=== PATIENT | female | born 1995 | race Caucasian/White ===

== ENCOUNTER 2020-07-08 10:05 | Outpatient (CLI) | payer OTHER ==
[2020-07-08 22:23] LABS: SARS-CoV-2 PCR by NAA Not Detected (NotDetected)
== END 2020-07-08 10:06 | disposition home or self-care (01) ==
LOC: LABBT 10:05
PROVIDERS: ATTEND Obstetrics & Gynecology
DX: Z01.812 Encounter for preprocedural laboratory examination (principal); Z20.822 Contact with and (suspected) exposure to COVID-19
CPT/HCPCS: 87635; U0003; U0005

== ENCOUNTER 2020-07-11 10:29 | Inpatient (IN) | payer OTHER ==
[2020-07-11] MEDS ORDERED: Promethazine HCl 25 MG/ML VIAL IM PRN ×2 (11:06→18:05)
[2020-07-11] MEDS ORDERED: Bicitra 30 ML UDCUP PO PRN (11:06)
[2020-07-11] MEDS ORDERED: Famotidine/PF 20 mg/2ml Vial SLOW IVP PRN (11:06)
[2020-07-11] MEDS ORDERED: Ondansetron PF 4 MG/2 ML Vial IVP PRN ×2 (11:06→18:05)
[2020-07-11] MEDS ORDERED: hydrALAZINE 20 MG/ML VIAL SLOW IVP PRN ×2 (11:06→12:05)
[2020-07-11 11:18] VITALS: BMI 34.7
[2020-07-11 11:24] LABS: Mean Corpuscular HGB CONC 34.2 g/dL (32.0-36.0); Mean Corpuscular Hemoglobin 30.2 pg (27.0-31.0); Mean Corpuscular Volume 88.4 fL (78.0-98.0); Mean Platelet Volume 9.8 fL (7.4-10.4); Platelet Count 146 thou/uL (130-400); RBC Distribution Width 13.2 % (11.5-14.5); White Blood Cell (WBC) Count 8.4 thou/uL (4.8-10.8)
[2020-07-11] MEDS ORDERED: Morphine PF 10 MG/10 ML VIAL ONE (11:36)
[2020-07-11] MEDS ORDERED: Dexamethasone 4 mg/ml Vial ONE ×2 (11:37→12:40)
[2020-07-11] MEDS ORDERED: Phenylephrine 40 MG/NS 250 ML 250 ML ONE (11:37)
[2020-07-11] MEDS ORDERED: Oxytocin 10 UNITS/ML VIAL ONE (11:37)
[2020-07-11] MEDS ORDERED: Ondansetron PF 4 MG/2 ML Vial ONE ×2 (11:37→14:32)
[2020-07-11] MEDS ORDERED: Ketorolac Tromethamine 30 MG/ML VIAL ONE (11:37)
[2020-07-11] MEDS ORDERED: PHENYLEPHRINE-NS 100 MCG/ML 10 ML SYRINGE ONE (11:37)
[2020-07-11] MEDS ORDERED: ePHEDrine 50 MG/ML VIAL ONE (11:37)
[2020-07-11] MEDS ORDERED: Famotidine/PF 20 mg/2ml Vial ONE (11:51)
[2020-07-11] MEDS ORDERED: Acetaminophen 325 MG TAB PO PRN (12:05)
[2020-07-11] MEDS ORDERED: diphenhydrAMINE 25 MG CAP PO PRN (12:05)
[2020-07-11] MEDS ORDERED: Lanolin Ointment 7 GM TUBE TOP PRN (12:05)
[2020-07-11] MEDS ORDERED: HYDROcodone/Acetaminophen 5/325 mg Tablet PO PRN ×2 (12:05)
[2020-07-11] MEDS ORDERED: Misoprostol 200 MCG TAB PR PRN (12:05)
[2020-07-11 12:07] LABS: HBSAg Index 0.17 S/CO (0-0.99); Hep B Surf Ag Non-Reactive S/CO (NonReactive)
[2020-07-11 12:08] LABS: Syphilis Antibody Nonreactive (Nonreactive); Syphilis Antibody Index 0.14 S/CO (<1.00 Non-Reactive)
[2020-07-11] MEDS ORDERED: Ibuprofen 800 MG TAB PO SCH (14:00)
[2020-07-11] MEDS ORDERED: Boostrix 0.5 ML (Tdap) VIAL IM ONE (14:00)
[2020-07-11] MEDS ORDERED: Naloxone HCl 0.4 mg/ml Vial IVP PRN ×2 (18:05)
[2020-07-11] MEDS ORDERED: Naloxone HCl 0.4 mg/ml Vial IV PRN (18:05)
[2020-07-11] MEDS ORDERED: Promethazine HCl 25 MG SUPP PR PRN (18:05)
[2020-07-11] MEDS ORDERED: Sodium Chloride 0.9% 10 ML ONE (18:08)
[2020-07-11] MEDS ORDERED: Communication Order-Pharmacy FS SCH (18:15)
[2020-07-11] MEDS: diphenhydrAMINE 50 MG/ML VIAL IVP PRN (19:47)
[2020-07-11] MEDS: Ketorolac Tromethamine 30 MG/ML VIAL IVP PRN (19:52)
[2020-07-12] MEDS: Docusate Calcium (SURFAK) 240 MG CAP PO SCH ×3 (03:04→23:04)
[2020-07-12 06:04] LABS: Hemoglobin 9.3 g/dL (12.0-16.0); Mean Corpuscular HGB CONC 34.1 g/dL (32.0-36.0); Mean Corpuscular Hemoglobin 30.7 pg (27.0-31.0); Mean Corpuscular Volume 90.2 fL (78.0-98.0); Mean Platelet Volume 10.1 fL (7.4-10.4); Platelet Count 171 thou/uL (130-400); RBC Distribution Width 13.2 % (11.5-14.5); Red Blood Cell (RBC) Count 3.03 mill/uL (4.20-5.40); White Blood Cell (WBC) Count 14.1 thou/uL (4.8-10.8)
[2020-07-12] MEDS: diphenhydrAMINE 50 MG/ML VIAL IVP PRN (06:06)
[2020-07-12] MEDS: Ketorolac Tromethamine 30 MG/ML VIAL IVP PRN (06:06)
[2020-07-12] MEDS ORDERED: Adacel (T-DAP) 0.5 ML SYRINGE IM ONE (09:00)
[2020-07-12] MEDS: Prenatal Vitamin 1 TAB PO SCH (09:22)
[2020-07-12] MEDS ORDERED: Sodium Chloride 0.9% 10 ML ONE (14:03)
[2020-07-12] MEDS: Ibuprofen 800 MG TAB PO SCH ×2 (14:05→21:03)
[2020-07-12] MEDS: Simethicone Chewable 80 MG TAB PO PRN ×2 (14:11→21:03)
[2020-07-12] MEDS ORDERED: FLU VACC QS2020-21(6MOS UP)/PF 60 MCG/0.5 ML SYRINGE IM ONE (14:15)
[2020-07-12] MEDS ORDERED: HYDROcodone/Acetaminophen 5/325 mg Tablet PO PRN (18:30)
[2020-07-12] MEDS: HYDROcodone/Acetaminophen 5/325 mg Tablet PO PRN ×2 (18:33→23:01)
[2020-07-13] MEDS: HYDROcodone/Acetaminophen 5/325 mg Tablet PO PRN ×3 (02:56→12:16)
[2020-07-13] MEDS: Ibuprofen 800 MG TAB PO SCH (06:05)
[2020-07-13] MEDS: Prenatal Vitamin 1 TAB PO SCH (07:39)
[2020-07-13] MEDS: Docusate Calcium (SURFAK) 240 MG CAP PO SCH (07:49)
[2020-07-13 08:11] VITALS: BP 105/68; TEMP 98.7
[2020-07-13] MEDS ORDERED: Sodium Chloride 0.9% 0 ML ONE (12:28)
== END 2020-07-13 13:30 | disposition home or self-care (01) | DRG 787 ==
LOC: L&D 10:29 → 3SW 15:45
PROVIDERS: ADMIT Obstetrics & Gynecology; ATTEND Obstetrics & Gynecology
PROC: 10D00Z1 Extraction of Products of Conception, Low, Open Approach (ICD-10-PCS; principal; 2020-07-11)
PROC: 3E0234Z Introduction of Serum, Toxoid and Vaccine into Muscle, Percutaneous Approach (ICD-10-PCS; 2020-07-11)
DX: O35.8XX0 Maternal care for other (suspected) fetal abnormality and damage, not applicable or unspecified (principal); K51.90 Ulcerative colitis, unspecified, without complications; Z20.822 Contact with and (suspected) exposure to COVID-19; O26.893 Other specified pregnancy related conditions, third trimester; O99.62 Diseases of the digestive system complicating childbirth; Z3A.37 37 weeks gestation of pregnancy; Z37.0 Single live birth; Z67.11 Type A blood, Rh negative; Z79.899 Other long term (current) drug therapy
CPT/HCPCS: 36415; 51702; 85027; 85461; 86780; 86850; 86870; 86900; 86901; 87340; 87635; 90384; 96372; J1100; J1200; J1885; J2270; J2405; J3490; Q0163; S0028; U0003; U0005

== ENCOUNTER 2021-03-01 13:02 | Emergency (ER) | payer OTHER ==
[2021-03-01] MEDS ORDERED: Acetaminophen 500 MG TAB ONE (13:12)
[2021-03-01] MEDS ORDERED: Ondansetron ODT 4 MG TAB ONE (13:13)
[2021-03-01 15:26] LABS: #Lymphocytes 0.5 thou/uL (1.20-3.40); #Monocytes 0.2 thou/uL (0.11-0.59); #Neutrophils 2.4 thou/uL (1.40-6.50); %Basophils 1.4 % (0.0-1.0); %Eosinophils 0.3 % (0.0-10.0); %Lymphocytes 17.2 % (21.0-51.0); %Monocytes 4.7 % (0.0-10.0); %Neutrophils 76.4 % (42.0-75.0); Hemoglobin 15.4 g/dL (12.0-16.0); Mean Corpuscular HGB CONC 33.6 g/dL (32.0-36.0); Mean Corpuscular Hemoglobin 29.2 pg (27.0-31.0); Mean Corpuscular Volume 86.9 fL (78.0-98.0); Mean Platelet Volume 10.6 fL (7.4-10.4); Platelet Count 122 thou/uL (130-400); RBC Distribution Width 12.5 % (11.5-14.5); Red Blood Cell (RBC) Count 5.27 mill/uL (4.20-5.40); White Blood Cell (WBC) Count 3.1 thou/uL (4.8-10.8)
[2021-03-01 15:53] LABS: ALT (SGPT) 231 U/L (8-55); AST (SGOT) 222 U/L (5-34); Albumin 3.9 g/dL (3.5-5.0); Alkaline Phosphatase 65 U/L (40-110); Anion Gap 13 mmol/L (10-20); BUN (Urea Nitrogen) 7 mg/dL (7.0-18.7); Bilirubin, Total 0.5 mg/dL (0.2-1.2); Calc. Creatinine Clearance 0 mL/min (70-130); Calcium 8.6 mg/dL (7.8-10.44); Carbon Dioxide 22 mmol/L (22-29); Chloride 108 mmol/L (98-107); Globulin 3.3 g/dL (2.4-3.5); Glucose 113 mg/dL (70-105); Potassium 3.5 mmol/L (3.5-5.1); Protein, Total 7.2 g/dL (6.0-8.3); Sodium 139 mmol/L (136-145)
[2021-03-01] MEDS ORDERED: Ketorolac Tromethamine 30 MG/ML VIAL ONE (16:00)
[2021-03-01 23:16] LABS: SARS-CoV-2 PCR by NAA DETECTED (NotDetected)
== END 2021-03-01 18:16 | disposition home or self-care (01) ==
LOC: ERS 13:02
DX: U07.1 COVID-19 (principal)
CPT/HCPCS: 71045; 80053; 85025; 93005; 96374; 96375; J1885; Q0162; U0003; U0005

== ENCOUNTER 2021-03-03 01:44 | Emergency (ER) | payer OTHER ==
[2021-03-03] MEDS ORDERED: Ondansetron ODT 4 MG TAB ONE (02:10)
[2021-03-03] MEDS ORDERED: Metoclopramide HCl 10 MG/2 ML VIAL ONE (03:07)
[2021-03-03] MEDS ORDERED: diphenhydrAMINE 50 MG/ML VIAL ONE (03:07)
[2021-03-03 03:14] LABS: ALT (SGPT) 235 U/L (8-55); AST (SGOT) 212 U/L (5-34); Albumin 3.5 g/dL (3.5-5.0); Alkaline Phosphatase 72 U/L (40-110); Anion Gap 13 mmol/L (10-20); BUN (Urea Nitrogen) 5 mg/dL (7.0-18.7); Bilirubin, Total 0.6 mg/dL (0.2-1.2); Calc. Creatinine Clearance 0 mL/min (70-130); Calcium 7.9 mg/dL (7.8-10.44); Carbon Dioxide 22 mmol/L (22-29); Chloride 108 mmol/L (98-107); Globulin 2.8 g/dL (2.4-3.5); Glucose 129 mg/dL (70-105); Potassium 3.4 mmol/L (3.5-5.1); Protein, Total 6.3 g/dL (6.0-8.3); Sodium 140 mmol/L (136-145)
[2021-03-03] MEDS ORDERED: Promethazine HCl 25 MG/ML VIAL ONE (04:58)
[2021-03-03] MEDS ORDERED: Ketorolac Tromethamine 30 MG/ML VIAL ONE (04:59)
== END 2021-03-03 06:54 | disposition home or self-care (01) ==
LOC: ERS 01:44
DX: U07.1 COVID-19 (principal); E86.0 Dehydration; R00.0 Tachycardia, unspecified; J45.909 Unspecified asthma, uncomplicated; Z79.899 Other long term (current) drug therapy
CPT/HCPCS: 36415; 80053; J1200; J1885; J2550; J2765; Q0162

== ENCOUNTER 2021-03-04 08:49 | Inpatient (IN) | payer OTHER ==
[2021-03-04 09:37] LABS: #Lymphocytes 0.6 thou/uL (1.20-3.40); #Monocytes 0.2 thou/uL (0.11-0.59); #Neutrophils 2.6 thou/uL (1.40-6.50); %Lymphocytes 17.3 % (21.0-51.0); %Monocytes 4.9 % (0.0-10.0); %Neutrophils 77.8 % (42.0-75.0); Hemoglobin 15.2 g/dL (12.0-16.0); Mean Corpuscular HGB CONC 33.7 g/dL (32.0-36.0); Mean Corpuscular Hemoglobin 28.9 pg (27.0-31.0); Mean Corpuscular Volume 85.7 fL (78.0-98.0); Mean Platelet Volume 9.2 fL (7.4-10.4); Platelet Count 137 thou/uL (130-400); RBC Distribution Width 12.5 % (11.5-14.5); Red Blood Cell (RBC) Count 5.27 mill/uL (4.20-5.40); White Blood Cell (WBC) Count 3.3 thou/uL (4.8-10.8)
[2021-03-04 09:49] LABS: BHCG - Serum Negative (NEGATIVE); Pregs Control Background? CLEAR/WHITE (CLR/WHITE); Pregs Control Bar Appear? YES (CONTROL BAR)
[2021-03-04] MEDS ORDERED: Famotidine/PF 20 mg/2ml Vial ONE (09:53)
[2021-03-04] MEDS ORDERED: Ondansetron PF 4 MG/2 ML Vial ONE (09:53)
[2021-03-04] MEDS ORDERED: Promethazine HCl 25 MG/ML VIAL ONE (09:53)
[2021-03-04 09:57] LABS: ALT (SGPT) 247 U/L (8-55); AST (SGOT) 246 U/L (5-34); Albumin 3.7 g/dL (3.5-5.0); Alkaline Phosphatase 85 U/L (40-110); Anion Gap 14 mmol/L (10-20); BUN (Urea Nitrogen) Less than 4 mg/dL (7.0-18.7); Bilirubin, Total 0.7 mg/dL (0.2-1.2); Calc. Creatinine Clearance 0 mL/min (70-130); Calcium 8.3 mg/dL (7.8-10.44); Carbon Dioxide 22 mmol/L (22-29); Chloride 105 mmol/L (98-107); Globulin 3.3 g/dL (2.4-3.5); Glucose 129 mg/dL (70-105); Lipase 38 U/L (8-78); Potassium 3.1 mmol/L (3.5-5.1); Sodium 138 mmol/L (136-145)
[2021-03-04] MEDS ORDERED: Iopamidol-370 76% 500 ML 1 ML ONE (11:42)
[2021-03-04] MEDS ORDERED: Ketorolac Tromethamine 30 MG/ML VIAL ONE (12:18)
[2021-03-04] MEDS ORDERED: Haloperidol Lactate 5 MG/ML VIAL ONE (12:18)
[2021-03-04] MEDS ORDERED: Ondansetron ODT 4 MG TAB PO PRN (16:40)
[2021-03-04] MEDS ORDERED: Acetaminophen 650 MG Suppository PR PRN (16:40)
[2021-03-04] MEDS ORDERED: Acetaminophen 325 MG Suppository ONE (17:15)
[2021-03-04] MEDS ORDERED: Metoclopramide HCl 10 MG/2 ML VIAL ONE (17:15)
[2021-03-04] MEDS ORDERED: Albuterol 200 PUFF (6.7GM INHALER) INH PRN (17:22)
[2021-03-04 17:25] LABS: Magnesium 1.6 mg/dL (1.6-2.6)
[2021-03-04 18:24] VITALS: BMI 31.8
[2021-03-04 18:29] LABS: Cardiac Risk 3.4 (Less than 4.5)
[2021-03-04] MEDS: Acetaminophen 325 MG TAB PO PRN (18:34)
[2021-03-04] MEDS: Potassium Chloride 20 MEQ in Premix Bag 1 BAG IVPB SCH ×2 (21:47→23:50)
[2021-03-05] MEDS: Acetaminophen 325 MG TAB PO PRN ×2 (00:30→04:27)
[2021-03-05] MEDS: Ondansetron PF 4 MG/2 ML Vial IVP PRN ×3 (00:37→20:32)
[2021-03-05] MEDS ORDERED: Prevnar 13-Val Conj/PF 0.5 ML SYRINGE IM ONE (01:30)
[2021-03-05] MEDS: D5 1/2 NS w/20 mEq KCL 1,000 ML IV SCH ×5 (01:56→16:12)
[2021-03-05 03:01] LABS: Bacteria/HPF None Seen HPF (None Seen); Bilirubin Negative (Negative); Blood, Urine Negative (Negative); Clarity Clear (Clear); Glucose, Urine (Dipstick) Normal (Negative); Ketone, Urine 40 mg/dL (Negative); Leukocyte Negative Leu/uL (Negative); Mucous/LPF Rare LPF (<2+); Nitrite Negative (Negative); Protein, Urine (Dipstick) Negative (Neg-Trace); RBC/HPF 0-3 HPF (0-3); Specific Gravity, Urine 1.009 (1.002-1.036); Squamous Epithelial 0-3 HPF (0-3); WBC/HPF 0-3 HPF (0-3)
[2021-03-05] MEDS ORDERED: Ibuprofen 600 MG TAB PO SCH (05:30)
[2021-03-05] MEDS: Guaifenesin DM 100-10/5 ML UDCUP PO PRN (05:48)
[2021-03-05] MEDS: Potassium Chloride 20 MEQ in Premix Bag 1 BAG IVPB SCH (07:16)
[2021-03-05] MEDS ORDERED: Lorazepam 2 MG/ML VIAL ONE ×2 (08:17→17:52)
[2021-03-05] MEDS ORDERED: Enoxaparin Sodium 40 MG/0.4 ML SYRINGE SC SCH ×2 (09:00→10:00)
[2021-03-05 09:18] LABS: #Lymphocytes 0.7 thou/uL (1.20-3.40); #Monocytes 0.2 thou/uL (0.11-0.59); #Neutrophils 2.5 thou/uL (1.40-6.50); %Basophils 0.2 % (0.0-1.0); %Lymphocytes 21.5 % (21.0-51.0); %Monocytes 5.4 % (0.0-10.0); %Neutrophils 72.9 % (42.0-75.0); Hemoglobin 13.6 g/dL (12.0-16.0); Mean Corpuscular HGB CONC 33.5 g/dL (32.0-36.0); Mean Corpuscular Hemoglobin 29.2 pg (27.0-31.0); Mean Corpuscular Volume 87.1 fL (78.0-98.0); Mean Platelet Volume 8.6 fL (7.4-10.4); Platelet Count 144 thou/uL (130-400); RBC Distribution Width 12.5 % (11.5-14.5); Red Blood Cell (RBC) Count 4.67 mill/uL (4.20-5.40); White Blood Cell (WBC) Count 3.4 thou/uL (4.8-10.8)
[2021-03-05] MEDS ORDERED: Ascorbic Acid 500 mg Chewable Tablet PO SCH (09:30)
[2021-03-05] MEDS ORDERED: Zinc Sulfate 220 MG CAP PO SCH (09:30)
[2021-03-05] MEDS: Zinc Sulfate 220 MG CAP PO SCH (09:42)
[2021-03-05] MEDS: Ascorbic Acid 500 mg Chewable Tablet PO SCH (09:42)
[2021-03-05 10:17] LABS: ALT (SGPT) 162 U/L (8-55); AST (SGOT) 124 U/L (5-34); Albumin 3.2 g/dL (3.5-5.0); Alkaline Phosphatase 89 U/L (40-110); Anion Gap 14 mmol/L (10-20); BUN (Urea Nitrogen) Less than 4 mg/dL (7.0-18.7); Bilirubin, Direct 0.6 mg/dL (0.1-0.3); Bilirubin, Total 0.8 mg/dL (0.2-1.2); Calc. Creatinine Clearance 211 mL/min (70-130); Calcium 7.5 mg/dL (7.8-10.44); Carbon Dioxide 19 mmol/L (22-29); Chloride 110 mmol/L (98-107); Glucose 139 mg/dL (70-105); Potassium 3.3 mmol/L (3.5-5.1); Protein, Total 6.1 g/dL (6.0-8.3); Sodium 140 mmol/L (136-145)
[2021-03-05] MEDS ORDERED: Ibuprofen 800 MG TAB PO SCH (14:15)
[2021-03-05] MEDS: Ibuprofen 800 MG TAB PO PRN (20:05)
[2021-03-05] MEDS ORDERED: Cholecalciferol 1,000 UNITS (25 MCG) TAB PO SCH (21:00)
[2021-03-05] MEDS ORDERED: hydrOXYzine 25 MG TAB PO SCH (23:30)
[2021-03-06] MEDS: D5 1/2 NS w/20 mEq KCL 1,000 ML IV SCH ×2 (00:25→08:36)
[2021-03-06] MEDS: Ondansetron PF 4 MG/2 ML Vial IVP PRN (04:05)
[2021-03-06] MEDS: Ibuprofen 800 MG TAB PO PRN ×2 (04:11→08:56)
[2021-03-06 08:01] VITALS: BP 117/83; TEMP 98.4
[2021-03-06] MEDS: Zinc Sulfate 220 MG CAP PO SCH (08:37)
[2021-03-06] MEDS: Ascorbic Acid 500 mg Chewable Tablet PO SCH (08:37)
[2021-03-06] MEDS: Guaifenesin DM 100-10/5 ML UDCUP PO PRN (08:57)
[2021-03-06] MEDS ORDERED: Enoxaparin Sodium 40 MG/0.4 ML SYRINGE SC SCH (09:00)
== END 2021-03-06 11:39 | disposition home or self-care (01) | DRG 177 ==
LOC: ERS 08:49 → T4-B 16:23 → OBSVTOIN 03-05 09:28
PROVIDERS: ADMIT Internal Medicine; ATTEND Family Medicine
PROC: 8E0ZXY6 Isolation (ICD-10-PCS; principal; 2021-03-05)
DX: U07.1 COVID-19 (principal); J12.82 Pneumonia due to coronavirus disease 2019; K51.90 Ulcerative colitis, unspecified, without complications; G93.49 Other encephalopathy; J45.909 Unspecified asthma, uncomplicated; F41.9 Anxiety disorder, unspecified; F32.9 Major depressive disorder, single episode, unspecified; R11.2 Nausea with vomiting, unspecified; E87.6 Hypokalemia; R74.01 Elevation of levels of liver transaminase levels; K21.9 Gastro-esophageal reflux disease without esophagitis; Z88.1 Allergy status to other antibiotic agents
CPT/HCPCS: 36415; 36416; 70450; 71275; 74177; 80048; 80053; 80061; 80076; 81001; 82728; 83690; 83735; 84443; 84703; 85025; 86140; 93005; 96375; 96376; G0378; J1200; J1630; J1650; J1885; J2060; J2405; J2550; J2765; J3480; Q0162; Q9967; S0028

== ENCOUNTER 2021-03-07 16:54 | Emergency (ER) | payer OTHER | END 2021-03-07 17:46 | disposition home or self-care (01) | LOC: ERS 16:54 | DX: M26.59 Other dentofacial functional abnormalities (principal); J45.909 Unspecified asthma, uncomplicated; K51.90 Ulcerative colitis, unspecified, without complications; Z79.899 Other long term (current) drug therapy; Z79.84 Long term (current) use of oral hypoglycemic drugs | CPT/HCPCS: 99283 ==